=== PATIENT | male | born 1985 | race Caucasian/White ===

== ENCOUNTER 2022-03-21 16:02 | Outpatient (CLI) | payer OTHER ==
--- NOTE | 2022-03-22 21:56 | XRAY Report ---
PROCEDURE: Knee 3 View RT INDICATIONS: CONTUSION OF RIGHT KNEE TECHNIQUE: 3 views of the right knee(s) were acquired. COMPARISON: None FINDINGS: Bones: No fractures or dislocations. No suspicious bony lesions. Mild narrowing of the medial femo ral tibial joint and tricompartmental mild periarticular osteophyte formation. Sclerotic bony lesions are present involving the distal femoral shaft as well as the proximal tibial metaphysis with chondr oid matrix, intact bony cortex and no periosteal reaction. Soft tissues: No joint effusion. No suspicious soft tissue calcifications. IMPRESSION: 1. No fracture or dislocation. 2. Mild tricompartmental knee joint degeneration. 3. Sclerotic bony lesions of the distal femur and proximal tibial metaphysis with appearance suggesti ng enchondroma. Recommend comparison with prior imaging if available and if not, follow-up plain film in 6 months is recommended. Reviewed by: OZIEL Persaud on 03/22/2022 9:55 PM PST Approved by: Buddy Turpin MD on 03/22/2022 9:55 PM PST Station ID: [id number]
== END 2022-03-21 16:03 | disposition home or self-care (01) ==
LOC: DI 16:02
PROVIDERS: ATTEND Registered Nurse
DX: M17.11 Unilateral primary osteoarthritis, right knee (principal); M89.9 Disorder of bone, unspecified

== ENCOUNTER 2022-03-22 09:19 | Outpatient (CLI) | payer OTHER ==
[2022-03-22 19:00] LABS: BASOPHILS % (AUTO) 0.5 %; EOSINOPHILS % (AUTO) 0.8 %; HCT - HEMATOCRIT 40.3 % (42.0-52.0); HGB - HEMOGLOBIN 13.1 g/dL (14.0-18.0); LYMPHOCYTES # (AUTO) 1.1 10^3/uL (1.5-3.5); LYMPHOCYTES % (AUTO) 28.2 %; MEAN CORPUSCULAR HEMOGLOBIN 28.9 pg (27.0-31.0); MEAN CORPUSCULAR HGB CONC 32.5 g/dL (32.0-36.0); MEAN CORPUSCULAR VOLUME 88.8 fL (80.0-94.0); MEAN PLATELET VOLUME 11.5 fL (7.4-11.4); MONOCYTES # (AUTO) 0.4 10^3/uL (0.0-1.0); MONOCYTES % (AUTO) 9.3 %; NEUTROPHILS # (AUTO) 2.3 10^3/uL (1.5-6.6); NEUTROPHILS % (AUTO) 60.9 %; PLT - PLATELET COUNT 216 10^3/uL (130-450); RED BLOOD COUNT 4.54 10^6/uL (4.70-6.10); WHITE BLOOD COUNT 3.8 x10^3/uL (4.8-10.8)
[2022-03-22 19:30] LABS: ALBUMIN 4.1 g/dL (3.2-5.5); ALBUMIN/GLOBULIN RATIO 1.6 (1.0-2.2); ALKALINE PHOSPHATASE 55 IU/L (42-121); ALT ALANINE AMINOTRANSFERASE 16 IU/L (10-60); AST ASPARTATE AMINOTRANSFERASE 22 IU/L (10-42); BILIRUBIN,TOTAL 0.4 mg/dL (0.2-1.0); BUN - BLOOD UREA NITROGEN 13 mg/dL (6-20); CALCIUM 9.3 mg/dL (8.5-10.3); CARBON DIOXIDE - CO2 31 mmol/L (21-32); CHLORIDE 102 mmol/L (101-111); CREATININE 0.9 mg/dL (0.6-1.2); GFR - MDRD 96 (>89); GLUCOSE 69 mg/dL (70-100); POTASSIUM 4.2 mmol/L (3.5-5.0); SODIUM 140 mmol/L (135-145); TOTAL PROTEIN 6.6 g/dL (6.7-8.2)
[2022-03-22 19:52] LABS: CRP - C-REACTIVE PROTEIN < 1.0 mg/dL (0-1.0)
== END 2022-03-22 09:20 | disposition home or self-care (01) ==
LOC: LAB.N 09:19
PROVIDERS: ATTEND Registered Nurse
DX: R93.7 Abnormal findings on diagnostic imaging of other parts of musculoskeletal system (principal)
CPT/HCPCS: 36415; 80053; 85025; 85651; 86140

== ENCOUNTER 2022-03-24 10:46 | Outpatient (CLI) | payer OTHER ==
--- NOTE | 2022-03-24 13:51 | XRAY Report ---
PROCEDURE: Knee 3 View RT INDICATIONS: ABNORMAL BONE RADIOGRAPH TECHNIQUE: 3 views of the right knee(s) were acquired. COMPARISON: None. FINDINGS: Bones: No fractures or dislocations. Cortical based mixed lytic and sclerotic lesion involving poste rior cortex of distal femoral shaft above the level of lateral femoral condyle is seen without associ ated cortical erosion or periosteal reaction. Similarly mixed lytic and sclerotic lesion also noted i nvolving posterior medial cortex of proximal tibial shaft. Soft tissues: There is a small joint effusion. No suspicious soft tissue calcifications. IMPRESSION: No right knee fracture or dislocation. Benign appearing cortical based lesions in distal femoral shaft and proximal tibial shaft as described above and likely represent benign process such as nonossifying fibroma or enchondroma. Clinical and radiographic follow-up is recommended for evalua tion of stability. Small joint effusion. Reviewed by: Shiv James MD on 03/24/2022 1:49 PM PST Approved by: Shiv James MD on 03/24/2022 1:49 PM PST Station ID: [id number]
--- NOTE | 2022-03-24 13:53 | XRAY Report ---
PROCEDURE: Pelvis 1 View INDICATIONS: CONTUSION OF RIGHT KNEE TECHNIQUE: 1 view(s) of the pelvis acquired. COMPARISON: None. FINDINGS: Bones: No fractures or dislocations. No evidence of avascular necrosis of femoral head. No suspiciou s bony lesions. Soft tissues: Visualized bowel gas pattern is normal. No suspicious soft tissue calcifications. IMPRESSION: This is a normal study. Reviewed by: Shiv James MD on 03/24/2022 1:52 PM PST Approved by: Shiv James MD on 03/24/2022 1:52 PM PST Station ID: [id number]
--- NOTE | 2022-03-24 13:53 | XRAY Report ---
PROCEDURE: Femurs 2V BILAT INDICATIONS: ABNORMAL BONE RADIOGRAPH TECHNIQUE: 4 views of the femur were acquired. COMPARISON: None. FINDINGS: Bones: No fractures or dislocations. Oval mixed lytic and sclerotic lesion is seen involving posteri or lateral cortex of distal right femoral shaft without bony erosions or periosteal reaction. No susp icious bony lesions is seen in left femur. Soft tissues: No suspicious soft tissue calcifications or masses. IMPRESSION: 1. Unremarkable radiographic examination of left femur. 2. No right femoral fracture or dislocation. Benign-appearing cortical-based lesion in right distal f emoral shaft as above suggestive of benign process such as nonossifying fibroma or enchondroma. Clini dez and radiographic follow-up is recommended for evaluation of stability. Reviewed by: Shiv James MD on 03/24/2022 1:51 PM PST Approved by: Shiv James MD on 03/24/2022 1:51 PM PST Station ID: [id number]
== END 2022-03-24 10:47 | disposition home or self-care (01) ==
LOC: DI 10:46
PROVIDERS: ATTEND Registered Nurse
DX: M89.9 Disorder of bone, unspecified (principal)